=== PATIENT | female | born 1995 | race Caucasian/White ===

== ENCOUNTER 2023-11-05 11:21 | Emergency (ER) | payer OTHER ==
[~2023-11-05] VITALS: Ht 167.6 cm; Wt 73.0 kg
[2023-11-05 11:26] VITALS: BP 114/76
[2023-11-05 11:30] VITALS: BP 113/69
[2023-11-05 12:00] VITALS: BP 110/73
[2023-11-05 12:30] VITALS: BP 111/75
[2023-11-05 12:35] VITALS: BP 111/75
== END 2023-11-05 12:40 | disposition home or self-care (01) | DRG 556 ==
LOC: ED 11:21
DX: M25.532 Pain in left wrist (principal); F41.9 Anxiety disorder, unspecified; F32.A Depression, unspecified; V49.40XA Driver injured in collision with unspecified motor vehicles in traffic accident, initial encounter

== ENCOUNTER 2023-11-07 09:45 | Emergency (ER) | payer OTHER ==
[~2023-11-07] VITALS: Ht 167.6 cm; Wt 73.0 kg
[2023-11-07 10:08] VITALS: BP 132/81
[2023-11-07 10:15] VITALS: BP 118/78
[2023-11-07 10:30] VITALS: BP 105/66
[2023-11-07] MEDS ORDERED: DEXAMETHASONE SOD. PHOSPHATE 10 MG/ML VIAL IV ONE (10:35)
[2023-11-07] MEDS ORDERED: DiphenhydrAMINE HCL 50 MG/ML SDV IV ONE (10:35)
[2023-11-07] MEDS ORDERED: METOCLOPRAMIDE HCL 10 MG/2 ML SDV IV ONE (10:35)
[2023-11-07] MEDS ORDERED: KETOROLAC TROMETHAMINE 30 MG/ML SDV IV ONE (10:35)
[2023-11-07] MEDS ORDERED: REGLAN10 MG PO (13:00)
[2023-11-07] MEDS ORDERED: MOTRIN800 MG PO (13:00)
[2023-11-07 13:37] VITALS: BP 105/66
== END 2023-11-07 13:38 | disposition home or self-care (01) | DRG 556 ==
LOC: ED 09:45
DX: M25.532 Pain in left wrist (principal); R51.9 Headache, unspecified; M54.2 Cervicalgia; F41.9 Anxiety disorder, unspecified; F32.A Depression, unspecified; V89.2XXA Person injured in unspecified motor-vehicle accident, traffic, initial encounter

== ENCOUNTER 2024-05-20 10:22 | Emergency (ER) | payer OTHER ==
[~2024-05-20] VITALS: Ht 167.6 cm; Wt 72.0 kg
[~2024-05-20 10:22] MED LIST: MOTRIN800 MG PO; REGLAN10 MG PO
[2024-05-20] MEDS ORDERED: Diph, Acellular Pertussis, Tet 0.5 ML/VIAL (Tdap) SDV IM ONE (10:35)
[2024-05-20] MEDS ORDERED: LIDOcaine HCl 1% (Local Anesth.) 20 ML VIAL STI STA (10:37)
[2024-05-20 11:12] VITALS: BP 134/82
== END 2024-05-20 11:20 | disposition home or self-care (01) | DRG 605 ==
LOC: ED 10:22
PROC: 0HQGXZZ Repair Left Hand Skin, External Approach (ICD-10-PCS; principal; 2024-05-20)
DX: S61.012A Laceration without foreign body of left thumb without damage to nail, initial encounter (principal); W45.8XXA Other foreign body or object entering through skin, initial encounter; Y93.E9 Activity, other interior property and clothing maintenance; Y92.009 Unspecified place in unspecified non-institutional (private) residence as the place of occurrence of the external cause
CPT/HCPCS: 90715